=== PATIENT | female | born 1955 | race Caucasian/White ===

== ENCOUNTER 2016-07-13 11:49 | Emergency (ER) | payer OTHER ==
[2016-07-13 13:27] LABS: BASO % 0.3 % (0.1-1.2); EOS # 0.2 10_X3_uL (0.0-0.4); EOS % 2.1 % (0.7-5.8); GRAN # 4.7 10_X3_uL (1.6-6.1); GRAN % 52.1 % (34.0-71.1); HEMATOCRIT 34.6 % (34-45); HEMOGLOBIN 11.6 g/dL (11.2-15.7); LYMPH # 3.4 10_X3_uL (1.2-3.7); LYMPH % 38.1 % (19.3-51.7); MEAN CORPUSCULAR HEMOGLOBIN 31.6 pg (27.0-33.0); MEAN CORPUSCULAR HGB CONC 33.5 g/dL (32.0-36.0); MEAN CORPUSCULAR VOLUME 94.3 fL (79-95); MEAN PLATELET VOLUME 11.4 fl (7.5-11.5); MONO # 0.7 10_X3_uL (0.2-0.9); MONO % 7.4 % (4.7-12.5); PLATELET COUNT 174 x10_3/uL (182-369); RED BLOOD COUNT 3.67 x10_6/uL (3.9-5.2); RED CELL DISTRIBUTION WIDTH 13.3 % (11.7-14.4)
[2016-07-13 13:39] LABS: ALBUMIN 3.7 gm/dL (3.4-5.0); ALKALINE PHOSPHATASE 107 U/L (50-136); ALT/SGPT 32 U/L (3.5-33.9); AST/SGOT 29 U/L (7.04-26.96); BLOOD UREA NITROGEN 8 mg/dL (7-18); CALCIUM 8.5 mg/dL (8.7-10.7); CARBON DIOXIDE 30 mmol/L (21-32); CREATININE 0.5 mg/dL (0.6-1.3); GLUCOSE,RANDOM 125 mg/dL (70-99); POTASSIUM 3.7 mmol/L (3.5-5.1); SODIUM 143 mmol/L (136-145)
[2016-07-13 13:43] LABS: BILIRUBIN,TOTAL < 0.15 mg/dL (0.0-1.0)
== END 2016-07-13 14:11 | disposition home or self-care (01) ==
LOC: ER 11:49
PROVIDERS: Emergency Medicine
DX: R42 Dizziness and giddiness (principal); Z71.1 Person with feared health complaint in whom no diagnosis is made; Z88.5 Allergy status to narcotic agent; Z88.6 Allergy status to analgesic agent
CPT/HCPCS: 36415; 80053; 85025; 99283